=== PATIENT | male | born 1995 | race Hispanic/Latino ===

== ENCOUNTER 2021-08-22 07:40 | Day surgery (SDC) | payer OTHER ==
[~2021-08-22] VITALS: Ht 177.8 cm; Wt 72.6 kg
[~2021-08-22 07:40] MED LIST: LIDOCAINE 1% MDV 20ML VIAL SQ PRN; LIDOCAINE 2% 100MG/5ML SDV (FOR ANES.) As Ordered ONE; LR 1,000 ML IV ONE; MIDAZOLAM INJ 2MG/2ML VIAL (J2250 PER 1MG) As Ordered ONE; ROCURONIUM BROMIDE 50 MG/5 ML VIAL As Ordered ONE; fentaNYL 250 MCG/5 ML INJECTION (J3010) As Ordered ONE; propofoL 200 MG/20 ML VIAL As Ordered ONE
[2021-08-22] MEDS ORDERED: BUPIVACAINE/EPIN 0.5% 30 ML VIAL As Ordered ONE (09:46)
[2021-08-22] MEDS ORDERED: ONDANSETRON 4MG/2ML VIAL As Ordered ONE (10:53)
[2021-08-22] MEDS ORDERED: SUGAMMADEX SODIUM 500 MG/5 ML VIAL (BRIDION) As Ordered ONE (10:53)
[2021-08-22] MEDS ORDERED: KETOROLAC 60MG 2ML VIAL As Ordered ONE (10:54)
[2021-08-22] MEDS ORDERED: dexameTHASONE 4 MG/ML 1ML VIAL (J1100 PER 1MG) As Ordered ONE (10:54)
[2021-08-22] MEDS ORDERED: ACETAMINOPHEN 1000MG 100ML IV BTL (OFIRMEV) (J0131 PER 10MG) As Ordered ONE (10:54)
[2021-08-22] MEDS ORDERED: LR 1,000 ML IV SCH ×2 (11:00)
[2021-08-22] MEDS ORDERED: fentaNYL 100 MCG/2 ML INJECTION (J3010) IV PRN (11:00)
[2021-08-22] MEDS ORDERED: ONDANSETRON 4MG/2ML VIAL IV PRN ×2 (11:00)
[2021-08-22] MEDS ORDERED: HYDROcodone/APAP LIQUID 7.5-325MG 15ML UDC (LORTAB ELIXIR) PO PRN (11:00)
[2021-08-22] MEDS: oxyCODONE 5MG TAB PO PRN ×2 (11:06→11:33)
--- NOTE | 2021-08-22 11:15 | ROOPDOC ---
[facility] Report Of Operation Report of Operation DATE OF PROCEDURE: 08/22/21 PREPROCEDURE DIAGNOSES: Chronic tonsillitis. POSTPROCEDURE DIAGNOSES: Same. PROCEDURE PERFORMED: Tonsillectomy. SURGEON: MD Hiram [employer] SILVERER: [place], ANESTHESIA: General. ESTIMATED BLOOD LOSS: Approximately less than 5 mL. COMPLICATIONS: None. REMARKS: . FINDINGS: SPECIMENS REMOVED: Right and left tonsil PROCEDURE NOTE: . DESCRIPTION OF PROCEDURE: Patient was seen in the office and was diagnosed with chronic tonsillitis. Decision was made in consultation with the patient, after explanation of risks and benefits to undergo the above-named procedure. Patient was admitted through the same-day surgery program, taken to the operating room where general anesthetic was administered via intravenous injection. Patient was then intubated endotracheally. Tonsil gag was placed in the mouth and expanded. This was secured to a Camacho stand. Red rubber catheter was placed through the nose and in the oropharynx for smoke evacuation. Right tonsil was grasped with an Allis forceps and retracted medially. Using electrocautery, the capsule was identified laterally. Tonsil was then removed from its fossa in an inferior to superior fashion. Once this was completed, several areas were cauterized. The left tonsil was then grasped with an Allis forceps and retracted medially. Using electrocautery, the capsule was identified laterally. Tonsil was removed from its fossa and inferior to superior fashion. Once this was completed, the bed was inspected, several areas were cauterized. 2 tonsil sponges were soaked in 0.5% Marcaine with epinephrine, one was placed in each tonsil bed for several minutes and then removed. The gag was then released, removed from the mouth. The TMJ joint was checked. The patient was then allowed to recover from the anesthetic and was taken to the post anesthesia care area in stable condition. There were no complications during this procedure. . Lester Gandhi MD Aug 22, 2021 11:14
[2021-08-22 12:16] VITALS: BP 129/68
== END 2021-08-22 12:35 | disposition home or self-care (01) ==
LOC: M SDC 07:40
PROVIDERS: ATTEND Otolaryngology
DX: J35.01 Chronic tonsillitis (principal)
CPT/HCPCS: 42826; 88302; J0131; J1100; J1885; J2250; J2405; J3010